=== PATIENT | male | born 1975 | race Hispanic/Latino ===

== ENCOUNTER 2019-08-30 00:12 | Inpatient (IN) | payer SELFPAY ==
[2019-08-30 02:32] VITALS: BMI 27.9
[2019-08-30] MEDS ORDERED: Diltiazem HCl 125 MG, Admixture Fee 1 EACH in Sodium Chloride 0.9% 100 ML IVPB SCH ×2 (02:45→03:30)
[2019-08-30] MEDS ORDERED: Acetaminophen 325 MG TAB PO PRN (04:47)
[2019-08-30] MEDS ORDERED: Ondansetron PF 4 MG/2 ML Vial IVP PRN (04:47)
[2019-08-30] MEDS: Sodium Chloride 0.9% 1,000 ML IV SCH ×3 (05:15→20:09)
--- NOTE | 2019-08-30 05:54 | HP ---
PRIMARY CARE PHYSICIAN: None. CHIEF COMPLAINT: Anxiety, restlessness, tremors, insomnia x2 weeks. HISTORY OF PRESENT ILLNESS: This is a 44-year-old male with no chronic medical comorbidities, who has not recently seen a primary care physician, who presented to [place] [facility] for a 2-week history of feeling restless, anxious, tremulous and has been insomniac after simultaneously losing his job and breaking up with girlfriend prompting further evaluation. The patient reports drinking beer 4 to 5 cans per day about 6 days per week for the last couple weeks, but denies any prior history of alcohol withdrawal symptoms. He denies any anginal complaints, near syncope, or syncope. He has been eating and hydrating well. Denies any recent illnesses or sick contacts or any acute GI losses. [facility], he was noted to be in new-onset atrial fibrillation, rapid ventricular response of approximately 130 beats per minute. He was administered 30 mg IV Cardizem bolus and placed on a Cardizem drip at 5 mg/ hour with improvement in ventricular rate control. He was also administered weight- based Lovenox injection as well as 1 mg IV Ativan. BMP, cardiac biomarkers, thyroid function tests, and urine drug screen with toxicology were all unremarkable. The patient was noted to have elevated liver enzymes with AST 111, ALT 140, T bilirubin 1.7. The patient was transferred to [facility] for further evaluation. He was maintained on 5 mg/hour Cardizem drip and he has been admitted for further inpatient evaluation. At bedside, the patient feels better since aforementioned medications. He offers no other acute complaints. He simply is fatigued and would like to get some rest. PAST MEDICAL HISTORY: None. PAST SURGICAL HISTORY: None. SOCIAL HISTORY: The patient smokes 1 pack per day. He drinks beer 4 to 5 cans per day approximately 6 days per week. He denies any illicit drug use. He recently lost this job and his girlfriend. ALLERGIES: NONE DOCUMENTED. REVIEW OF SYSTEMS: Pertinent positives as per HPI. Remainder of review of systems negative. MEDICATIONS: None. FAMILY HISTORY: The patient denies any chronic medical comorbidities in family members. PHYSICAL EXAMINATION: VITAL SIGNS: T-max afebrile at 98.3, pulse 86 to 94, blood pressure 144/90 to 152/92, oxygen saturation 98% on room air, respirations 16 to 18 and unlabored. GENERAL APPEARANCE: This is a middle-aged male, awake, alert, oriented, coherent, lucid, not in any obvious distress, speaking in full complete sentences. Fatigued and depressed in appearance. Not anxious or tremulous. HEENT: Normocephalic, atraumatic. No facial asymmetry. Pupils equally round. Conjunctival injection noted. No conjunctival pallor. No scleral icterus. Moist mucous membranes. NECK: Supple. CARDIOVASCULAR SYSTEM: S1, S2. Irregularly irregular. No harsh murmurs. No chest wall tenderness to palpation. No tachyarrhythmia. LUNGS: Bilateral equal air entry. Clear to auscultation. Symmetrical chest expansion. No wheezing or rales. ABDOMEN: Soft, nontender, nondistended. EXTREMITIES: No appreciable lower extremity edema. SKIN: Warm to touch without rash or pallor or abrasion. NEUROLOGIC EVALUATION: Patient is awake, alert, oriented, coherent, lucid, no hallucination, disorientation is noted. No focal deficits appreciated. No baseline resting tremors noted. PSYCHIATRIC EVALUATION: Patient's mood is okay. He has a depressed affect. LABORATORY VALUES: WBC 6.8, H and H 16.8/54.6, platelets 83. D-dimer 0.50. Sodium 138, potassium 4.3, chloride 99, bicarb 25, glucose 122. BUN and creatinine of 18/1.00, T bilirubin 1.7, alkaline phosphatase 67, AST 111, ALT 140. TSH of 1.1. Urinalysis with proteinuria, ketonuria, bilirubinuria, urobilinogenuria. Toxicology for salicylates, acetaminophens, drugs, and alcohol negative. IMAGING DATA: CTA chest and thorax reveals no evidence of central PE, but limited evaluation of the pulmonary arterial system. One-view chest x-ray from 08/29/2019 suggest no acute cardiopulmonary process. 12-lead EKG done in [place] on 08/29/2019 at 2243 hours reveal atrial fibrillation with ventricular rate of 100 beats per minute. No ST elevation noted. Left axis deviation. 12-lead EKG on 08/30/2019 at 0120 hours reveal atrial fibrillation with ventricular rate control. ASSESSMENT: 1. New-onset atrial fibrillation with rapid ventricular response. The patient will be admitted to inpatient status, placed on telemetry monitoring. He received IV Cardizem bolus 30 mg, has been placed on Cardizem drip at 5 mg/hour with ventricular rate control. Continue IV Cardizem drip at the current rate. Consult Cardiology to guide transition to oral AV brittany blocking agent. We will start on IV fluid resuscitation. Unclear if patient's recent stress, anxiety, and alcohol consumption are contributing to the patient's symptoms. Monitor for alcohol withdrawal symptoms. Start p.r.n. oral Librium. The patient denies any prior history of risk factors that would increase secondary stroke and will avoid therapeutic anticoagulation at this time. We will obtain TTE. 2. Elevated liver enzymes likely secondary to chronic alcohol dependence. We will monitor for alcohol withdrawal symptoms. We will start p.r.n. oral Librium. We will start oral multivitamin as well. 3. Chronic alcohol dependence. The patient reports beer approximately 6 days per week. He denies any history of alcohol withdrawal symptoms, however, noting elevated liver enzymes and thrombocytopenia. The patient will need encouragement for alcohol abstinence and may need outpatient consideration for evaluation of chronic liver disease. 4. Recent stress and anxiety likely secondary to increased psychosocial stressors. The patient reports losing his job and his girlfriend in the past several weeks. The patient offered words of encouragement. Benefit from cognitive behavioral therapy and alcohol abstinence. 5. Nicotine dependence. The patient will need cessation counseling. Deep venous thrombosis prophylaxis. Ambulation. DNR STATUS: Full code. DISPOSITION: The patient will be admitted to inpatient status and placed on telemetry monitoring. The patient seen and examined on 08/30/2019. Job ID: [id number] MTDD
[2019-08-30] MEDS: ALPRAZolam 0.25 MG TAB PO PRN ×2 (06:36→23:35)
[2019-08-30] MEDS ORDERED: FLU VACC QS2019-20(6MOS UP)/PF 60 MCG/0.5 ML SYRINGE IM ONE (09:00)
[2019-08-30] MEDS: chlordiazePOXIDE HCl 25 MG CAP PO PRN ×3 (10:05→22:24)
[2019-08-30] MEDS ORDERED: Magnesium 2 GM/50 ML 2 GM in Premix Bag 1 BAG IVPB SCH (17:30)
[2019-08-30] MEDS: Diltiazem HCl 125 MG, Admixture Fee 1 EACH in Sodium Chloride 0.9% 100 ML IVPB SCH (19:59)
[2019-08-30] MEDS: Metoprolol Tartrate 25 MG TAB PO SCH (20:00)
[2019-08-30] MEDS: Enoxaparin Sodium 80 MG/0.8 ML SYRINGE SC SCH (20:00)
--- NOTE | 2019-08-30 23:52 | CON ---
DATE OF CONSULTATION: 08/30/2019 REASON FOR CONSULTATION: Atrial fibrillation. HISTORY OF PRESENT ILLNESS: Mr. Harley is a 44-year-old man, main symptom is he has felt anxious for actually several months. He has an occasional sensation of his heart beating irregularly, but it is infrequent. He went to the hospital complaining of anxiety, restlessness, tremors and insomnia, and was found to be in atrial fibrillation with a rapid rate. Had no chest pain or pressure. PAST MEDICAL HISTORY: Negative for medical problems. PAST SURGICAL HISTORY: Negative. SOCIAL HISTORY: He says he chews tobacco or dips. He drinks about 5 to 6 cans of beer about six days a week. He said he has been able to go several days at a time without any alcohol. ALLERGIES: NONE DOCUMENTED. REVIEW OF SYSTEMS: CONSTITUTIONAL: Positive for anxiety. VISION: No changes. HEARING: No changes. PULMONARY: No cough or wheezing. GASTROINTESTINAL: No nausea, vomiting, or diarrhea. SKIN: No rashes. NEUROLOGIC: No unilateral weakness or numbness. PSYCHIATRIC: Positive for anxiety. PHYSICAL EXAMINATION: GENERAL: This is a 44-year-old man resting comfortably. No chest pain. VITAL SIGNS: Blood pressure 144/85, pulse 80 and it is irregular. LUNGS: Clear. CARDIAC: Irregularly irregular. ABDOMEN: Obese and nontender. EXTREMITIES: No clubbing. No cyanosis. No edema. SKIN: Warm and dry. PERTINENT LABORATORY: EKG, initially atrial fibrillation, rate at 2243 hours was 100 beats per minute. At one period, it look like it could potentially have been sinus rhythm at 2:17 a.m. Echocardiogram revealed ejection fraction low range of normal at 50% to 55%. Left atrium mildly dilated. The patient does have abnormal lab results with an AST of 111, ALT 140. Hemoglobin 16.8. ASSESSMENT: 1. Atrial fibrillation. By report, there is an increased ventricular rate, but EKGs on the chart really do not indicate a very rapid rate with EKGs that are currently available, but there was a rate of 130 beats per minute according to the notes. 2. Alcohol dependence. 3. Increased liver function test prior related to alcohol. PLAN: 1. Continue enoxaparin. 2. Will start some beta blockers and reduce Cardizem. 3. Stress test to be done. 4. If he maintains fibrillation, consideration for transesophageal echo and cardioversion on Wednesday. Long-term care would likely be problematic. 5. Atrial fibrillation in patient with alcohol dependent is very challenging as the risk of anticoagulation is markedly increased. In addition, the patient unfortunately does not have any medical insurance, which may make purchasing medicines for him difficult, especially some of the direct oral anticoagulants which are quite expensive. 6. Further recommendations based on clinical course. Job ID: [id number]
[2019-08-31] MEDS: Sodium Chloride 0.9% 1,000 ML IV SCH ×3 (04:39→21:09)
[2019-08-31] MEDS: chlordiazePOXIDE HCl 25 MG CAP PO PRN ×3 (04:40→21:08)
[2019-08-31 04:49] LABS: INR-International Normal Ratio 1.1; Prothrombin Time 14.1 SEC (12.0-14.7)
[2019-08-31] MEDS: Enoxaparin Sodium 80 MG/0.8 ML SYRINGE SC SCH ×2 (08:37→21:07)
[2019-08-31] MEDS ORDERED: Regadenoson 0.4 MG/5 ML SYRINGE ONE (08:53)
[2019-08-31] MEDS: Metoprolol Tartrate 25 MG TAB PO SCH ×2 (09:39→21:08)
--- NOTE | 2019-08-31 09:53 | PRG ---
DATE OF SERVICE: 08/31/2019 SUBJECTIVE: Mr. Harley remains in atrial fibrillation. He feels fine. OBJECTIVE: VITAL SIGNS: His blood pressure 152/83, pulse 80 and it is irregular. LUNGS: Clear. CARDIAC: Irregularly irregular. ABDOMEN: Soft and nontender. ASSESSMENT: 1. Persistent atrial fibrillation. 2. LV function in the low range of normal. PLAN: Stress testing today. WENDIE and cardioversion tomorrow. Discussed risks including injury to the esophagus, stroke, need for pacemaker. Job ID: [id number]
--- NOTE | 2019-08-31 20:33 | PDOC.HOSPP ---
- Subjective Encounter Date: 08/31/19 Encounter Time: 12:00 Subjective: No overnight events. This morning, prior to heading to stress test, appears midly confused but alert and oriented x 3. - Objective Vital Signs & Weight: Vital Signs (12 hours) Temp Pulse Resp BP Pulse Ox 08/31/19 15:00 98 F 82 18 147/90 H 98 08/31/19 11:06 98.7 F 92 18 149/99 H 98 Weight Weight 178 lb 6.4 oz I&O: 08/30/19 08/31/19 09/01/19 06:59 06:59 06:59 Intake Total 440 3370 1648 Output Total 800 2600 1200 Balance -360 770 448 Additional Labs: Accuchecks 08/31/19 17:47 POC Glucose 109 Hospitalist ROS - Review of Systems Constitutional: denies: fever, chills, sweats, weakness, malaise, other Respiratory: denies: cough, dry, shortness of breath, hemoptysis, SOB with excertion, pleuritic pain, sputum, wheezing, other Cardiovascular: denies: chest pain, palpitations, orthopnea, paroxysmal noc. dyspnea, edema, light headedness, other Gastrointestinal: denies: nausea, vomiting, abdominal pain, diarrhea, constipation, melena, hematochezia, other Genitourinary: denies: dysuria, frequency, incontinence, hematuria, retention, other Neurological: denies: weakness, numbness, incoordination, change in speech, confusion, seizures, other - Medication Medications: Active Medications Generic Name Dose Route Start Last Admin Trade Name Freq PRN Reason Stop Dose Admin Alprazolam 0.25 mg 08/30/19 04:49 08/30/19 23:35 Xanax PO 0.25 mg BIDPRN PRN Administration Anxiety Chlordiazepoxide HCl 25 mg 08/30/19 04:48 08/31/19 10:00 Librium PO 25 mg Q6H PRN Administration Alcohol Withdrawal Enoxaparin Sodium 80 mg 08/30/19 21:00 08/31/19 08:37 Lovenox SC 80 mg 0900,2100 HAO Administration Sodium Chloride 1,000 mls @ 125 mls/hr 08/30/19 05:00 08/31/19 13:43 Normal Saline 0.9% IV 1,000 mls .Q8H HAO Administration Diltiazem HCl 125 mg/ 125 mls @ 4 mls/hr 08/30/19 17:18 08/30/19 19:59 Miscellaneous Medication 1 IVPB 125 mls each/ Sodium Chloride INF HAO Administration Metoprolol Tartrate 25 mg 08/30/19 21:00 08/31/19 09:39 Lopressor PO 25 mg BID HAO Administration - Exam General Appearance: NAD, awake alert ENT: normocephalic atraumatic, moist mucosa Neck: supple, symmetric, no JVD, no thyromegaly, no lymphadenopathy, no carotid bruit Heart: no murmur, no gallops, irregular Respiratory: CTAB, no wheezes, no rales, no ronchi, normal chest expansion, no tachypnea, normal percussion Gastrointestinal: soft, non-tender, non-distended, normal bowel sounds, no palpable masses, no hepatomegaly, no splenomegaly, no bruit Neurological: cranial nerve grossly intact, normal sensation to touch, no weakness, no focal deficits, no new deficit Psychiatric: A&O x 3 Psychiatric - other findings: nervous about stress test, mildly confused Hosp A/P - Plan * persistent atrial fibrillation * Echo showing EF 50-55%, no significant valvular disease * per cardiology, will undergo nuclear stress test and WENDIE cardioversion (09/01) * meanwhile, will continue medical management * alcohol abuse * patient denies recent alcohol consumption, alcohol levels on presentation low * (08/31) - exhibits mild tremors and confusion * * will apply ASE protocol *
[2019-09-01 05:07] LABS: Anion Gap 15 mmol/L (10-20); BUN (Urea Nitrogen) 8 mg/dL (8.9-20.6); Calc. Creatinine Clearance 149 mL/min (70-130); Carbon Dioxide 22 mmol/L (22-29); Chloride 104 mmol/L (98-107); Estimated GFR-MDRD Greater than 90; Glucose 81 mg/dL (70-105); Magnesium 1.9 mg/dL (1.6-2.6); Sodium 137 mmol/L (136-145)
[2019-09-01] MEDS: Diltiazem HCl 125 MG, Admixture Fee 1 EACH in Sodium Chloride 0.9% 100 ML IVPB SCH (05:48)
[2019-09-01] MEDS: Sodium Chloride 0.9% 1,000 ML IV SCH (05:49)
--- NOTE | 2019-09-01 08:54 | NM ---
NM Cardiac Stress W EF WF History: Chest pain Comparison: None. Findings: Stress and rest performed after the intravenous administration of 27 and 31 mCi technetium 99m sestamibi, respectively. No scar or ischemia. Calculated ejection fraction is low at 35% of the indicating is limited due to a trial fibrillation. Impression: No evidence for scar or ischemia. Ejection fraction evaluation is limited due to atrial f ibrillation.
[2019-09-01] MEDS ORDERED: PROPOFOL 20 ML ONE ×2 (09:14→09:58)
[2019-09-01] MEDS ORDERED: PROPOFOL 200 MG/20 ML VIAL ONE (09:25)
--- NOTE | 2019-09-01 11:48 | OP ---
DATE OF PROCEDURE: 09/01/2019 PROCEDURE PERFORMED: Cardioversion. DESCRIPTION OF PROCEDURE: The patient was brought to the post cath area in a fasting state. He was sedated. A transesophageal echo revealed no evidence of any formed thrombus. He was given 200 joules direct current energy and converted to sinus rhythm with synchronized energy. CONCLUSION: Successful cardioversion. Job ID: [id number]
[2019-09-01] MEDS ORDERED: chlordiazePOXIDE HCl 25 MG CAP PO PRN (12:19)
[2019-09-01] MEDS: Enoxaparin Sodium 80 MG/0.8 ML SYRINGE SC SCH (12:53)
[2019-09-01] MEDS: Metoprolol Tartrate 25 MG TAB PO SCH (12:54)
--- NOTE | 2019-09-01 15:01 | OP ---
DATE OF PROCEDURE: 09/01/2019 PROCEDURE PERFORMED: Transesophageal echocardiogram. INDICATION: 44-year-old gentleman with paroxysmal atrial fibrillation. DESCRIPTION OF PROCEDURE: The patient was taken to the PACU. The patient was sedated by Anesthesiology. A transesophageal probe was placed into the distal esophagus and stomach. Echocardiographic images were obtained. The transesophageal probe was removed. FINDINGS: 1. Normal left ventricular systolic function. 2. Marked biatrial enlargement. 3. Normal aortic valve. 4. Mild mitral regurgitation. 5. Mild tricuspid regurgitation. 6. Spontaneous contrast noted in the left atrium or left atrial appendage with no formed thrombus. 7. Atherosclerotic debris in the descending aorta. IMPRESSION: Spontaneous contrast noted in the left atrium and left atrial appendage with no formed thrombus. Job ID: [id number] [facility]
--- NOTE | 2019-09-01 15:01 | PRG ---
DATE OF SERVICE: 09/01/2019 SUBJECTIVE: Mr. Harley underwent cardioversion today. He is in sinus rhythm. He is awake and alert, feels better. OBJECTIVE: VITAL SIGNS: Blood pressure is 142/90, pulse is 70. LUNGS: Clear. CARDIAC: Normal S1, normal S2. ABDOMEN: Obese, nontender. EXTREMITIES: No edema. ASSESSMENT: 1. Atrial fibrillation, status post cardioversion. 2. Ejection fraction looked normal on the echocardiogram. It was thought to be in the mid 30s on nuclear medicine study, but the rhythm was so irregular, the ejection fraction was not reliable on that study, but it looks within normal limits on echo, even in atrial fibrillation. 3. Alcohol substance dependence. Talked to the patient about the importance of not abusing any alcohol, especially since he is going to be on blood thinners. PLAN: 1. Okay to go home on metoprolol 50 mg a day. 2. Eliquis 5 mg twice a day, samples will be given. He does not currently have any medication insurance. Therefore, we will give him samples at least for 3 weeks. 3. I would be glad to see him in the office for followup. His blood pressure is somewhat elevated now, but he is withdrawing from alcohol. He is somewhat tremulous. He is alert and oriented, but his blood pressure may be lower later. 4. I told the patient that the most important things he can do to try to reduce risk of recurrent fibrillation is to avoid alcohol and to lose weight, which he understands. Job ID: [id number]
--- NOTE | 2019-09-01 17:51 | PDOC.HOSPP ---
- Subjective Encounter Date: 09/01/19 Encounter Time: 17:00 Subjective: Overnight, was agitated and required a sitter. This afternoon, feels better after receiving news of benign echocardiogram - Objective Vital Signs & Weight: Vital Signs (12 hours) Temp Pulse Resp BP BP Pulse Ox 09/01/19 16:00 97.2 F L 69 17 162/98 H 99 09/01/19 12:45 97.4 F L 71 17 155/95 H 98 09/01/19 08:40 97.2 F L 68 18 142/90 H 97 09/01/19 08:00 97 Weight Weight 178 lb 6.4 oz I&O: 08/31/19 09/01/19 09/02/19 06:59 06:59 06:59 Intake Total 3370 3558 730 Output Total 2600 1200 700 Balance 770 2358 30 Result Diagrams: 09/01/19 04:21 Additional Labs: Accuchecks 08/31/19 17:47 POC Glucose 109 Hospitalist ROS - Review of Systems Constitutional: denies: fever, chills, sweats, weakness, malaise, other Respiratory: denies: cough, dry, shortness of breath, hemoptysis, SOB with excertion, pleuritic pain, sputum, wheezing, other Cardiovascular: denies: chest pain, palpitations, orthopnea, paroxysmal noc. dyspnea, edema, light headedness, other Gastrointestinal: denies: nausea, vomiting, abdominal pain, diarrhea, constipation, melena, hematochezia, other Genitourinary: denies: dysuria, frequency, incontinence, hematuria, retention, other Neurological: denies: weakness, numbness, incoordination, change in speech, confusion, seizures, other - Medication Medications: Active Medications Generic Name Dose Route Start Last Admin Trade Name Freq PRN Reason Stop Dose Admin Alprazolam 0.25 mg 08/30/19 04:49 08/30/19 23:35 Xanax PO 0.25 mg BIDPRN PRN Administration Anxiety Metoprolol Succinate 50 mg 09/01/19 12:00 09/01/19 12:53 Toprol Xl PO 50 mg 1200 HAO Administration - Exam General Appearance: NAD, awake alert Neck: supple, symmetric, no JVD Heart: no murmur, no gallops, no rubs, normal peripheral pulses, irregular Respiratory: CTAB, no wheezes, no rales, no ronchi, normal chest expansion, no tachypnea, normal percussion Gastrointestinal: soft, non-tender, non-distended, normal bowel sounds, no palpable masses, no hepatomegaly, no splenomegaly, no bruit Neurological - other findings: mild tremors in extremities Psychiatric: normal affect, normal behavior, A&O x 3 Hosp A/P - Plan * persistent atrial fibrillation * Echo showing EF 50-55%, no significant valvular disease * s/p cardioversion , now sinus * cardiology provided eliquis and started on metoprolol * per cardiology, can be dced on 09/02 assuming remains sinus and HD stable * alcohol abuse * patient claims last drink on Wednesday * minimal use of benzodiazepines as inpatient; unlikely to be withdrawing at this point
[2019-09-01] MEDS: Apixaban 5 MG TAB PO SCH (20:40)
[2019-09-02] MEDS: Apixaban 5 MG TAB PO SCH (10:49)
[2019-09-02 11:50] VITALS: BP 148/86; TEMP 97.2
--- NOTE | 2019-09-03 00:59 | DIS ---
DATE OF ADMISSION: 08/30/2019 DATE OF DISCHARGE: 09/02/2019 PRIMARY CARE PROVIDER: None. DISCHARGE DIAGNOSES: 1. Atrial fibrillation. 2. Alcohol withdrawal. CONDITION OF PATIENT ON THE DAY OF DISCHARGE: Stable. I assessed Mr. Harley on the day of discharge. He denies any chest pain or shortness of breath. Vital signs are stable. S1 and S2 are heard, regular. Lungs are clear to auscultation bilaterally. CONSULTATIONS DURING THIS HOSPITALIZATION: Cardiology, Dr. Betts. POST-ACUTE CARE FOLLOWUP: With primary care provider in [address] Betts in 2 to 3 weeks. DISCHARGE MEDICATIONS: 1. Apixaban 5 mg 2 times a day. 2. Toprol-XL 50 mg daily. HOSPITAL COURSE: Mr. Harley is a pleasant 44-year-old gentleman, who was admitted to [facility] on August 30, 2019, for new onset atrial fibrillation with rapid ventricular response. This was in the context of alcohol withdrawal symptoms. He was seen by Cardiology Service. Transthoracic echocardiogram showed atrial fibrillation, left ventricle ejection fraction of 50% to 55%, mildly dilated left atrium. On September 01, 2019, he underwent WENDIE, which showed normal left ventricular systolic function, marked biatrial enlargement, normal aortic valve, mild mitral regurgitation, mild tricuspid regurgitation, and atherosclerotic debris in the descending aorta. He subsequently underwent electrical cardioversion. He has been started on apixaban and metoprolol succinate. He is being discharged home in a stable condition. He has been advised to stop alcohol abuse and tobacco use. DIET: Heart healthy. ACTIVITY: No restrictions. DISCHARGE DESTINATION: Home. TIME SPENT: Total amount of time spent coordinating this discharge: 32 minutes. Job ID: [id number]
== END 2019-09-02 13:04 | disposition home or self-care (01) | DRG 309 ==
LOC: ERS 00:12 → 2NO 02:27
PROVIDERS: ADMIT Hospitalist; ATTEND Hospitalist
PROC: B24BZZ4 Ultrasonography of Heart with Aorta, Transesophageal (ICD-10-PCS; principal; 2019-09-01)
PROC: 5A2204Z Restoration of Cardiac Rhythm, Single (ICD-10-PCS; 2019-09-01)
DX: I48.19 Other persistent atrial fibrillation (principal); F10.239 Alcohol dependence with withdrawal, unspecified; I10 Essential (primary) hypertension; F32.9 Major depressive disorder, single episode, unspecified; F17.200 Nicotine dependence, unspecified, uncomplicated
CPT/HCPCS: 36415; 36416; 78452; 80048; 83735; 85610; 85730; 90471; 90686; 92960; 93005; 93017; 93306; 93312; 96365; 96366; A9500; G0008; J1650; J2704; J2785; J3475; J3490

== ENCOUNTER 2021-02-21 23:07 | Inpatient (IN) | payer OTHER, SELFPAY ==
[2021-02-21] MEDS ORDERED: Diltiazem HCl 125 MG, Admixture Fee 1 EACH in Sodium Chloride 0.9% 100 ML IVPB SCH (23:59)
[2021-02-22] MEDS ORDERED: Acetaminophen 325 MG TAB PO PRN (00:59)
[2021-02-22] MEDS ORDERED: HYDROcodone/Acetaminophen 5/325 mg Tablet PO PRN (00:59)
[2021-02-22] MEDS ORDERED: Senokot S 8.6-50 MG TAB PO PRN (00:59)
[2021-02-22] MEDS ORDERED: Ondansetron PF 4 MG/2 ML Vial IVP PRN (00:59)
[2021-02-22 01:11] LABS: Troponin I Less than 0.010 ng/mL (< 0.028)
[2021-02-22] MEDS ORDERED: Diltiazem 125 MG in Sodium Chloride 0.9% 100 ML IVPB SCH (01:15)
[2021-02-22] MEDS ORDERED: Vancomycin 1.5 GRAM/300 ML BAG 1.5 GM in Premix Bag 1 BAG IVPB SCH (01:30)
[2021-02-22] MEDS ORDERED: Sodium Chloride 0.9% 1,000 ML IV SCH (01:30)
[2021-02-22] MEDS ORDERED: Acetaminophen 500 MG TAB ONE (01:44)
[2021-02-22 02:05] LABS: SARS-CoV-2 NAA Rapid Test Not Detected (NotDetected)
[2021-02-22 05:41] LABS: Hemoglobin 13.6 g/dL (14.0-18.0); Mean Corpuscular HGB CONC 33.9 g/dL (32.0-36.0); Mean Corpuscular Hemoglobin 33.4 pg (27.0-31.0); Mean Corpuscular Volume 98.6 fL (78.0-98.0); Mean Platelet Volume 7.1 fL (7.4-10.4); Platelet Count 164 thou/uL (130-400); RBC Distribution Width 12.7 % (11.5-14.5); Red Blood Cell (RBC) Count 4.08 mill/uL (4.70-6.10)
[2021-02-22 05:50] LABS: Troponin I Less than 0.010 ng/mL (< 0.028)
[2021-02-22 06:01] LABS: Anion Gap 13 mmol/L (10-20); BUN (Urea Nitrogen) 12 mg/dL (8.9-20.6); Calc. Creatinine Clearance 242 mL/min (70-130); Calcium 8.3 mg/dL (7.8-10.44); Carbon Dioxide 19 mmol/L (22-29); Chloride 93 mmol/L (98-107); Glucose 128 mg/dL (70-105); Magnesium 1.4 mg/dL (1.6-2.6); Potassium 4.3 mmol/L (3.5-5.1); Sodium 121 mmol/L (136-145)
[2021-02-22 06:12] LABS: Band 21 % (5-11); Lymphocytes 1 % (21-51); MDiff Complete? YES; Monocytes 2 % (0-10); Neutrophil 76 % (42-75); White Blood Cell (WBC) Count 25.8 thou/uL (4.8-10.8)
[2021-02-22] MEDS ORDERED: Vancomycin HCl 500 MG in Sodium Chloride 0.9% 100 ML IVPB SCH (08:30)
[2021-02-22] MEDS: Cefepime 1 GM in Sodium Chloride 0.9% 100 ML IVPB SCH ×2 (08:38→21:04)
[2021-02-22] MEDS: Apixaban 5 MG TAB PO SCH ×2 (08:39→21:03)
[2021-02-22] MEDS ORDERED: Magnesium 2 GM/50 ML 2 GM in Premix Bag 1 BAG IVPB SCH (14:45)
[2021-02-22 15:25] LABS: Anion Gap 10 mmol/L (10-20); BUN (Urea Nitrogen) 8 mg/dL (8.9-20.6); Calc. Creatinine Clearance 303 mL/min (70-130); Calcium 8.2 mg/dL (7.8-10.44); Carbon Dioxide 22 mmol/L (22-29); Chloride 95 mmol/L (98-107); Glucose 118 mg/dL (70-105); Potassium 3.8 mmol/L (3.5-5.1); Sodium 123 mmol/L (136-145)
[2021-02-22] MEDS: Sodium Chloride 0.9% 1,000 ML IV SCH (17:03)
[2021-02-22 19:50] LABS: Bacteria/HPF None Seen HPF (None Seen); Bilirubin Negative (Negative); Blood, Urine Negative (Negative); Clarity Clear (Clear); Glucose, Urine (Dipstick) Normal (Negative); Ketone, Urine Negative (Negative); Leukocyte Negative Leu/uL (Negative); Nitrite Negative (Negative); Protein, Urine (Dipstick) Negative (Neg-Trace); RBC/HPF 0-3 HPF (0-3); Specific Gravity, Urine 1.005 (1.002-1.036); Squamous Epithelial None Seen HPF (0-3); Urobilinogen Normal mg/dL (Less than 2); WBC/HPF 0-3 HPF (0-3); pH, Urine 6.5 (5.0-9.0)
[2021-02-22 19:53] LABS: Urine Culture Reflex No No
[2021-02-22] MEDS: VANCOMYCIN 2 GRAM/400 ML BAG 2 GM in Premix Bag 1 BAG IVPB SCH (22:38)
[2021-02-23] MEDS: Sodium Chloride 0.9% 1,000 ML IV SCH (04:38)
[2021-02-23 05:38] LABS: Anion Gap 12 mmol/L (10-20); BUN (Urea Nitrogen) 7 mg/dL (8.9-20.6); Calc. Creatinine Clearance 350 mL/min (70-130); Carbon Dioxide 20 mmol/L (22-29); Chloride 95 mmol/L (98-107); Glucose 102 mg/dL (70-105); Magnesium 1.8 mg/dL (1.6-2.6); Potassium 3.7 mmol/L (3.5-5.1); Sodium 123 mmol/L (136-145)
[2021-02-23 05:44] LABS: #Lymphocytes 0.6 thou/uL (1.20-3.40); #Monocytes 0.4 thou/uL (0.11-0.59); %Basophils 0.2 % (0.0-1.0); %Eosinophils 0.3 % (0.0-10.0); %Lymphocytes 5.6 % (21.0-51.0); %Neutrophils 89.9 % (42.0-75.0); Hemoglobin 13.1 g/dL (14.0-18.0); Mean Corpuscular HGB CONC 33.7 g/dL (32.0-36.0); Mean Corpuscular Hemoglobin 33.1 pg (27.0-31.0); Mean Corpuscular Volume 98.4 fL (78.0-98.0); Mean Platelet Volume 7.2 fL (7.4-10.4); Platelet Count 142 thou/uL (130-400); RBC Distribution Width 12.5 % (11.5-14.5); Red Blood Cell (RBC) Count 3.95 mill/uL (4.70-6.10)
[2021-02-23] MEDS: Apixaban 5 MG TAB PO SCH ×2 (11:03→20:22)
[2021-02-23] MEDS: Cefepime 1 GM in Sodium Chloride 0.9% 100 ML IVPB SCH ×2 (11:03→20:22)
[2021-02-23] MEDS: VANCOMYCIN 2 GRAM/400 ML BAG 2 GM in Premix Bag 1 BAG IVPB SCH (11:04)
[2021-02-23 12:09] LABS: Anion Gap 11 mmol/L (10-20); BUN (Urea Nitrogen) 7 mg/dL (8.9-20.6); Calc. Creatinine Clearance 344 mL/min (70-130); Carbon Dioxide 22 mmol/L (22-29); Chloride 96 mmol/L (98-107); Glucose 107 mg/dL (70-105); Potassium 3.7 mmol/L (3.5-5.1); Sodium 125 mmol/L (136-145)
[2021-02-23 12:11] LABS: Phosphorus 2.8 mg/dL (2.3-4.7)
[2021-02-23 12:13] LABS: Anion Gap 11 mmol/L (10-20); BUN (Urea Nitrogen) 7 mg/dL (8.9-20.6); Calc. Creatinine Clearance 355 mL/min (70-130); Calcium 7.9 mg/dL (7.8-10.44); Carbon Dioxide 21 mmol/L (22-29); Chloride 97 mmol/L (98-107); Glucose 104 mg/dL (70-105); Magnesium 1.9 mg/dL (1.6-2.6); Potassium 3.8 mmol/L (3.5-5.1); Sodium 125 mmol/L (136-145)
[2021-02-23 18:31] LABS: Anion Gap 12 mmol/L (10-20); BUN (Urea Nitrogen) 7 mg/dL (8.9-20.6); Calc. Creatinine Clearance 339 mL/min (70-130); Calcium 8.3 mg/dL (7.8-10.44); Carbon Dioxide 23 mmol/L (22-29); Chloride 99 mmol/L (98-107); Glucose 107 mg/dL (70-105); Potassium 3.8 mmol/L (3.5-5.1); Sodium 130 mmol/L (136-145)
[2021-02-23] MEDS ORDERED: hydrALAZINE 20 MG/ML VIAL SLOW IVP PRN (20:03)
[2021-02-23 22:48] LABS: Anion Gap 13 mmol/L (10-20); BUN (Urea Nitrogen) 7 mg/dL (8.9-20.6); Calc. Creatinine Clearance 334 mL/min (70-130); Calcium 8.3 mg/dL (7.8-10.44); Carbon Dioxide 19 mmol/L (22-29); Chloride 100 mmol/L (98-107); Glucose 102 mg/dL (70-105); Potassium 4.2 mmol/L (3.5-5.1); Sodium 128 mmol/L (136-145)
[2021-02-24 05:09] LABS: Anion Gap 13 mmol/L (10-20); BUN (Urea Nitrogen) 6 mg/dL (8.9-20.6); Calc. Creatinine Clearance 373 mL/min (70-130); Calcium 8.1 mg/dL (7.8-10.44); Carbon Dioxide 20 mmol/L (22-29); Chloride 98 mmol/L (98-107); Glucose 99 mg/dL (70-105); Potassium 3.5 mmol/L (3.5-5.1); Sodium 127 mmol/L (136-145)
[2021-02-24] MEDS ORDERED: cefTRIAXone\\ROCEPHIN 1 GM in Sodium Chloride 0.9% 100 ML IVPB SCH (08:00)
[2021-02-24] MEDS: Apixaban 5 MG TAB PO SCH ×2 (08:18→21:07)
[2021-02-24] MEDS: Folic Acid 1 MG TAB PO SCH (08:18)
[2021-02-24] MEDS: Losartan 25 MG TAB PO SCH (08:19)
[2021-02-24 14:13] LABS: Anion Gap 12 mmol/L (10-20); BUN (Urea Nitrogen) 7 mg/dL (8.9-20.6); Calc. Creatinine Clearance 325 mL/min (70-130); Calcium 8.1 mg/dL (7.8-10.44); Carbon Dioxide 22 mmol/L (22-29); Chloride 97 mmol/L (98-107); Glucose 135 mg/dL (70-105); Potassium 3.5 mmol/L (3.5-5.1); Sodium 127 mmol/L (136-145)
[2021-02-24] MEDS: Cefdinir 300 MG CAP PO SCH (21:07)
[2021-02-25 05:16] VITALS: BMI 58.8
[2021-02-25 05:25] LABS: #Basophils 0.1 thou/uL (0.0-0.2); #Eosinphils 0.3 thou/uL (0.0-0.7); #Lymphocytes 1.7 thou/uL (1.20-3.40); #Monocytes 0.7 thou/uL (0.11-0.59); #Neutrophils 7.8 thou/uL (1.40-6.50); %Basophils 0.5 % (0.0-1.0); %Eosinophils 2.8 % (0.0-10.0); %Lymphocytes 15.7 % (21.0-51.0); %Monocytes 6.8 % (0.0-10.0); %Neutrophils 74.2 % (42.0-75.0); Mean Corpuscular HGB CONC 33.6 g/dL (32.0-36.0); Mean Corpuscular Hemoglobin 33.1 pg (27.0-31.0); Mean Corpuscular Volume 98.7 fL (78.0-98.0); Mean Platelet Volume 7.3 fL (7.4-10.4); Platelet Count 165 thou/uL (130-400); RBC Distribution Width 12.8 % (11.5-14.5); Red Blood Cell (RBC) Count 3.91 mill/uL (4.70-6.10); White Blood Cell (WBC) Count 10.5 thou/uL (4.8-10.8)
[2021-02-25 05:38] LABS: Anion Gap 11 mmol/L (10-20); BUN (Urea Nitrogen) 7 mg/dL (8.9-20.6); Calc. Creatinine Clearance 350 mL/min (70-130); Calcium 8.2 mg/dL (7.8-10.44); Carbon Dioxide 24 mmol/L (22-29); Chloride 99 mmol/L (98-107); Glucose 105 mg/dL (70-105); Potassium 3.7 mmol/L (3.5-5.1); Sodium 130 mmol/L (136-145)
[2021-02-25] MEDS: Cefdinir 300 MG CAP PO SCH ×2 (09:39→20:31)
[2021-02-25] MEDS: Folic Acid 1 MG TAB PO SCH (09:39)
[2021-02-25] MEDS: Losartan 25 MG TAB PO SCH (09:39)
[2021-02-25] MEDS: Apixaban 5 MG TAB PO SCH ×2 (09:40→20:31)
[2021-02-25] MEDS: Acyclovir 400 mg Tablet PO SCH ×2 (13:18→20:31)
[2021-02-26 06:20] LABS: Anion Gap 12 mmol/L (10-20); BUN (Urea Nitrogen) 9 mg/dL (8.9-20.6); Calc. Creatinine Clearance 350 mL/min (70-130); Calcium 8.5 mg/dL (7.8-10.44); Carbon Dioxide 24 mmol/L (22-29); Chloride 100 mmol/L (98-107); Glucose 97 mg/dL (70-105); Potassium 3.7 mmol/L (3.5-5.1); Sodium 132 mmol/L (136-145)
[2021-02-26 07:39] VITALS: TEMP 97.6
[2021-02-26 09:06] LABS: Sodium 131 mmol/L (136-145)
[2021-02-26] MEDS: Acyclovir 400 mg Tablet PO SCH (09:21)
[2021-02-26] MEDS: Cefdinir 300 MG CAP PO SCH (09:21)
[2021-02-26] MEDS: Losartan 25 MG TAB PO SCH (09:21)
[2021-02-26] MEDS: Folic Acid 1 MG TAB PO SCH (09:21)
[2021-02-26] MEDS: Apixaban 5 MG TAB PO SCH (09:21)
[2021-02-26 11:40] VITALS: BP 165/95
== END 2021-02-26 15:18 | disposition home or self-care (01) | DRG 872 ==
LOC: ERS 23:07 → ERHOLD 02-22 00:15 → 2SE 02-22 02:41
PROVIDERS: ADMIT Internal Medicine; ATTEND Internal Medicine
DX: A41.9 Sepsis, unspecified organism (principal); L03.115 Cellulitis of right lower limb; Z68.43 Body mass index [BMI] 50.0-59.9, adult; E22.2 Syndrome of inappropriate secretion of antidiuretic hormone; I48.11 Longstanding persistent atrial fibrillation; F41.9 Anxiety disorder, unspecified; F32.9 Major depressive disorder, single episode, unspecified; I87.8 Other specified disorders of veins; E66.01 Morbid (severe) obesity due to excess calories; N18.1 Chronic kidney disease, stage 1; B00.1 Herpesviral vesicular dermatitis; D52.9 Folate deficiency anemia, unspecified; Z20.822 Contact with and (suspected) exposure to COVID-19; I12.9 Hypertensive chronic kidney disease with stage 1 through stage 4 chronic kidney disease, or unspecified chronic kidney disease; I48.0 Paroxysmal atrial fibrillation; E83.42 Hypomagnesemia; Z79.01 Long term (current) use of anticoagulants; Z79.899 Other long term (current) drug therapy
CPT/HCPCS: 0240U; 36415; 80048; 80202; 81001; 82607; 82746; 83605; 83735; 83930; 83935; 84100; 84443; 84484; 85007; 85025; 85027; 87040; 96365; 96366; J0360; J0692; J0696; J3370; J3475; J3490